=== PATIENT | female | born 1940 | race Caucasian/White ===

== ENCOUNTER 2024-01-06 19:13 | Emergency (ER) | payer MEDICARE, OTHER ==
[~2024-01-06] VITALS: Ht 167.6 cm; Wt 77.7 kg
[2024-01-06 19:17] VITALS: TEMP 98.3
[2024-01-06 20:45] LABS: CALCIUM 9.6 mg/dL (8.4-10.2); CREATININE, serum 0.85 mg/dL (0.57-1.11); POTASSIUM 4.2 mEq/L (3.5-4.5)
[2024-01-06 21:08] VITALS: BP 138/82; PULSE 72
== END 2024-01-06 21:11 | disposition home or self-care (01) ==
LOC: COL.ER 19:13
PROVIDERS: Physician Assistant
DX: M79.89 Other specified soft tissue disorders (principal)
CPT/HCPCS: J1650

== ENCOUNTER → 2024-01-07 | Outpatient (CLI) | payer MEDICARE, OTHER | LOC: COL.RAD 05:42 | DX: M79.89 Other specified soft tissue disorders (principal); Z96.641 Presence of right artificial hip joint ==